=== PATIENT | male | born 1970 | race Hispanic/Latino ===

== ENCOUNTER 2017-09-12 11:02 | Emergency (ER) | payer SELFPAY ==
[~2017-09-12] VITALS: Ht 167.6 cm; Wt 86.2 kg
[~2017-09-12 11:02] MED LIST: AMBIEN10 MG PO; AMLODIPINE BESY10 MG PO; ATIVAN2 MG PO; Aspirin PO; GLUCOTROL5 MG PO; LEXAPRO10 MG PO; LIPITOR20 MG PO; LOPRESSOR25 MG PO; METOPROLOL SUCC50 MG PO; PLAVIX75 MG PO; SEROQUEL400 MG PO; Z.0.AMBIEN10 MG PO; Z.0.ATENOLOL100 MG PO; Z.0.ATIVAN2 MG PO; Z.0.GLIPIZIDE ER10 M PO; Z.0.JANUVIA100 MG PO
[2017-09-12] MEDS ORDERED: ONDANSETRON HCL INJ 2 MG/ML VIAL IV STA ×2 (11:11→12:35)
[2017-09-12] MEDS ORDERED: SODIUM CHLORIDE 0.9% 1000ML 1,000 ML IV STA (11:11)
--- NOTE | 2017-09-12 11:26 | Diagnostic Imaging Report ---
PROCEDURE: A single AP view of the chest. COMPARISON: 07/13/2015 INDICATIONS: SHORTNESS OF BREATH, WEAKNESS FINDINGS: Lines/tubes: None. Lungs: The lungs are well inflated and clear. There is no evidence of pneumonia or pulmonary edema. Pleura: There is no pleural effusion or pneumothorax. Heart and mediastinum: The heart and the mediastinum are unremarkable. Bones: No acute bony abnormality. IMPRESSION: 1. No acute cardiopulmonary disease. Dictated by: Jamarcus Sousa M.D. on 09/12/2017 at 11:27 Electronically approved by: Jamarcus Sousa M.D. on 09/12/2017 at 11:27
[2017-09-12] MEDS ORDERED: METOPROLOL TART50 MG PO (11:36)
[2017-09-12] MEDS ORDERED: PAXIL40 MG PO (11:36)
[2017-09-12 11:44] LABS: BASOPHILS # (AUTO) 0.1 (0.0-0.1); BASOPHILS % 0.5 % (0.0-1.0); EOSINOPHILS % 0.1 % (0.0-6.0); LYMPHOCYTES # (AUTO) 1.1 (1.0-3.2); MEAN CORPUSCULAR HGB CONC 34.1 g/dL (31-35); MEAN CORPUSCULAR VOLUME 82.1 fL (81-99); MONOCYTES # (AUTO) 0.4 (0.2-0.8); MONOCYTES % 4.5 % (4.4-11.3); NEUTROPHILS % 83.4 % (38.7-80.0); PLATELET COUNT 305 x10e3/uL (140-360); RED BLOOD COUNT 5.36 x10e6/uL (4.3-5.7)
[2017-09-12] MEDS ORDERED: LORAZEPAM INJ 2 MG/ML VIAL IV ONE ×2 (11:45→14:45)
[2017-09-12 11:54] LABS: INR 1.11; PROTHROMBIN TIME 13.5 seconds (11.9-14.5)
[2017-09-12 11:55] LABS: PARTIAL THROMBOPLASTIN TIME 20.4 seconds (23.8-35.5)
[2017-09-12 11:56] LABS: AMPHETAMINES SCREEN,URINE NEGATIVE (NEGATIVE); BENZODIAZEPINES SCREEN,URINE POSITIVE (NEGATIVE); PHENCYCLIDINE SCREEN,URINE NEGATIVE (NEGATIVE)
[2017-09-12 12:03] LABS: ALANINE AMINOTRANSFERASE 43 IU/L (0-55); ALKALINE PHOSPHATASE 167 IU/L (40-150); ANION GAP 25.5 mmol/L (8-16); BLOOD UREA NITROGEN 11 mg/dL (7-26); BUN/CREATININE RATIO 11 (6-25); CALCIUM 9.1 mg/dL (8.4-10.2); CARBON DIOXIDE 16 mmol/L (22-29); CHLORIDE 101 mmol/L (98-107); CREATINE KINASE 162 IU/L (30-200); EST GLOMERULAR FILTRATION RATE > 60 ML/MIN (60-); GLUCOSE 343 mg/dL (74-118); MAGNESIUM 1.8 MG/DL (1.3-2.1); POTASSIUM 4.5 mmol/L (3.5-5.1); SODIUM 138 mmol/L (136-145)
[2017-09-12 12:21] LABS: FREE THYROXINE INDEX 1.6771 (1.4-3.8); THYROID STIMULATING HORMONE 0.153 uIU/mL (0.350-4.940)
[2017-09-12] MEDS ORDERED: METOPROLOL TARTRATE INJ 1 MG/ML VIAL IV ONE ×2 (12:45→15:15)
[2017-09-12] MEDS ORDERED: INSULIN REGULAR, HUMAN 100 UNIT/1 ML 3ML VIAL IV ONE (12:45)
[2017-09-12] MEDS ORDERED: PROMETHAZINE 12.5MG/ NACL 0.9% 12.5 MG/50 ML BAG IV ONE (13:30)
[2017-09-12 13:51] LABS: ABG HCO3 17 mmol/L (23-28); ABG PCO2 32 mmHg (41-51); ABG PH 7.32 (7.31-7.41); ABG PO2 77 mmHg (80-105)
--- NOTE | 2017-09-12 13:52 | Diagnostic Imaging Report ---
PROCEDURE: CT scan of the chest WITH intravenous contrast, using standard protocol. TECHNIQUE: The chest was scanned utilizing a multidetector helical scanner from the lung apex through the level of the adrenal glands after the IV administration of 66 cc of Isovue 370. Coronal and sagittal multiplanar reformations were obtained. COMPARISON: None. INDICATIONS: SHORTNESS OF BREATH. "FEELS BAD" FROM ALCOHOL INTAKE FINDINGS: Lines/tubes: None. Pulmonary Arteries: Mildly limited examination due to suboptimal bolus timing. No evidence of pulmonary embolus to the level of the segmental pulmonary arteries. The main pulmonary artery is mildly enlarged, measuring 3.3 cm in caliber (normal is 2.9 cm). Lungs and Airways: The major airways are clear. No focal consolidation or suspicious pulmonary parenchymal masses. Pleura: The pleural spaces are clear. Heart and mediastinum: The thyroid gland is normal. No significant mediastinal, hilar or axillary lymphadenopathy is seen. Normal heart size. No paravertebral effusion. There are coronary artery calcifications. Soft tissues: Normal. Abdomen: Severe diffuse hepatic steatosis. Bones: The visualized bony thorax is within normal limits. IMPRESSION: No evidence of pulmonary embolus to at least the level of the segmental arteries. No specific findings to account for the patient's dyspnea. Dictated by: Jamarcus Sousa M.D. on 09/12/2017 at 13:53 Electronically approved by: Jamarcus Sousa M.D. on 09/12/2017 at 13:53
[2017-09-12] MEDS ORDERED: SODIUM CHLORIDE 0.9% 1000ML 1,000 ML IV ONE (14:00)
[2017-09-12 16:24] VITALS: BP 122/78
== END 2017-09-12 16:24 | disposition home or self-care (01) ==
LOC: ER 11:02
DX: R00.2 Palpitations (principal); R00.0 Tachycardia, unspecified; F10.129 Alcohol abuse with intoxication, unspecified; E11.9 Type 2 diabetes mellitus without complications; I10 Essential (primary) hypertension; F41.9 Anxiety disorder, unspecified; I25.2 Old myocardial infarction
CPT/HCPCS: 36415; 36600; 71045; 71260; 80053; 80307; 82550; 82553; 82805; 83735; 83880; 84436; 84443; 84479; 84484; 85025; 85379; 85610; 85730; 93005; 99284; J2060; J2405; J2550; J7030

== ENCOUNTER 2019-12-04 15:57 | Inpatient (IN) | payer OTHER, SELFPAY ==
[2019-12-04] VITALS (9 sets, daily range): BP systolic 128–139; BP diastolic 91–102
[~2019-12-04] VITALS: Ht 167.6 cm; Wt 86.2 kg
[~2019-12-04 15:57] MED LIST changes: +METOPROLOL TART50 MG PO; +PAXIL40 MG PO
--- NOTE | 2019-12-04 16:51 | Emergency Department Note ---
History of Present Illnes History of Present Illness Chief Complaint: Chest Pain History of Present Illness This is a 49 year old male with substernal CP 2 hours prior to arrival. (+) SOB (+) N . Historian: Patient Arrival Mode: Car Onset (how long ago): hour(s) Location: substernal Radiation: Reports non-radiation Onset quality: sudden Chronicity: new Context: Denies recent illness, Denies recent surgery, Denies recent immobilization, Denies recent travel, Denies trauma/injury, Denies new medications, Denies hx of DVT/PE, Denies non-compliance w/ medications, Denies other Relieving factors: none Exacerbating factors: none Associated symptoms: Reports chest pain, Reports shortness of breath Treatments prior to arrival: none Past Medical/Family History Physician Review I have reviewed the patient's past medical and family history. Any updates have been documented here. Past Medical History Recent Fever: No Clinical Suspicion of Infectio: No New/Unexplained Change in Ment: No Past Medical History: Hypertension, Diabetes, NM Other Medical History: INSOMNIA, ANXIETY HIGH CHOLESTEROL Past Surgical History: None, PCI Other Surgery: 2 stents Social History Smoking Cessation: Never Smoker Alcohol Use: None Any Illegal Drug Use: No Other Last Tetanus: UNK Review of Systems Review of Systems Constitutional: Reports no symptoms EENTM: Reports no symptoms Cardiovascular: Reports chest pain Respiratory: Reports dyspnea Gastrointestinal: Reports nausea Genitourinary: Reports no symptoms Musculoskeletal: Reports no symptoms Integumentary: Reports no symptoms Neurological: Reports no symptoms Psychological: Reports no symptoms Endocrine: Reports no symptoms Hematological/Lymphatic: Reports no symptoms Physical Exam Related Data Allergies: Coded Allergies: No Known Allergies (Unverified , 09/12/17) Triage Vital Signs Vital Signs Date Time Temp Pulse Resp B/P (MAP) Pulse Ox O2 Delivery O2 Flow Rate FiO2 12/04/19 16:47 98.2 128 20 162/107 99 12/04/19 22:12 Nasal Cannula 12/04/19 22:29 2.0 Vital signs reviewed: Yes Physical Exam CONSTITUTIONAL Constitutional: Present well-developed, Present well-nourished HENT HENT: Present normocephalic, Present atraumatic, Present oropharynx clear/moist, Present nose normal HENT L/R: Present left ext ear normal, Present right ext ear normal EYES Eyes: Reports PERRL, Reports conjunctivae normal NECK Neck: Present ROM normal PULMONARY Pulmonary: Present effort normal, Present breath sounds normal CARDIOVASCULAR Cardiovascular: Present regular rhythm, Present heart sounds normal, Present capillary refill normal, Present normal rate, Present tachycardia GASTROINTESTINAL Abdominal: Present soft, Present nontender, Present bowel sounds normal GENITOURINARY Genitourinary: Present exam deferred SKIN Skin: Present warm, Present dry MUSCULOSKELETAL Musculoskeletal: Present ROM normal NEUROLOGICAL Neurological: Present alert, Present oriented x 3, Present no gross motor or sensory deficits PSYCHOLOGICAL Psychological: Present mood/affect normal, Present judgement normal Results Laboratory Lab results reviewed: Yes Laboratory comments Na : 125 MARKEDLY elevated troponins Imaging Imaging results reviewed: Yes Impressions [place] [address] Patient Name: ARIANA EASLEY MR #: [id number] : 1970 Age/Sex: 49/M Req #: [id number] Adm Physician: Ordered by: MARJ PANIAGUA DO Report #: [id number] Location: ER Room/Bed: Procedure: [id number] DX/CHEST SINGLE (PORTABLE) Exam Date: 12/04/19 Exam Time: 1944 REPORT STATUS: Signed EXAMINATION: CHEST SINGLE (PORTABLE) 12/04/2019 7:45 PM COMPARISON: None available. INDICATION: Chest pain. Shortness of breath. DISCUSSION: LINES: None. LUNGS: The lungs are mildly hypoinflated. No pneumonia or pulmonary edema. PLEURA: No pleural effusion or pneumothorax. HEART AND MEDIASTINUM: The cardiomediastinal silhouette is mildly enlarged. BONES AND SOFT TISSUES: No acute osseous lesion. IMPRESSION: No acute thoracic abnormality. Signed by: Dr. Yahaira Morrison M.D. on 12/04/2019 8:19 PM Dictated By: CARMEN MORRISON MD, MD 18 Transcribed By: NEY on 12/04/192018 COPY TO: MARJ PANIAGUA DO~ Procedures 12 Lead ECG Interpretation ECG Interpretation : ECG: ECG 1 Carton Maker: Interpreted by ED physician Date: Dec 04, 2019 Time: 16:50 Prior ECG tracings: reviewed Rate: tachycardia BPM: 128 ST segments normal: No ST segment elevation: V1-V6 ST segment flattening: II, III T waves normal: Yes Critical Care Time Total Critical Care Time (min): 31 Critcal care necessary due to: cardiac failure Critcal care time spent by me: develop tx plan w patient/surrogate, discussion w consultants, evaluation patient response to tx, examination of patient, order/review laboratory studies, order/review radiographic studies, re- evaluation of patient condition Assessment & Plan Medical Decision Making MDM 49 yom presents with CP . ACS, PE, costocondritis, Chest wall pain, and pneumothorax considered. labs, imaging and EKG reviewed . CODE STEMI activated. case d/w with Dr Sarah Child Assessment & Plan Final Impression: (1) STEMI (ST elevation myocardial infarction) (2) Hyponatremia Depart Disposition: ADMITTED Home Meds Active Scripts Metoprolol Tartrate (LOPRESSOR) 25 Mg Tab, 50 MG PO BID, #180 TAB Prov:BRYAN MARQUEZ MD 07/14/15 Glipizide (GLUCOTROL) 5 Mg Tablet, 5 MG PO BIDAC, #120 1 Refill Prov:BRYAN MARQUEZ MD 07/14/15 Clopidogrel Bisulfate* (PLAVIX) 75 Mg Tablet, 75 MG PO DAILY, #90 2 Refills Prov:BRYAN MARQUEZ MD 07/14/15 [Aspirin] 325 MG TAB No Conflict Check, 325 MG PO DAILY, #90 2 Refills Prov:BRYAN MARQUEZ MD 07/14/15 Atorvastatin Calcium (LIPITOR) 20 Mg Tablet, 20 MG PO HS, #90 TAB 1 Refill Prov:BRYAN MARQUEZ MD 07/14/15 Reported Medications Paroxetine Hcl (PAXIL) 40 Mg Tablet, 40 MG PO HS 09/12/17 Metoprolol Tartrate (METOPROLOL TARTRATE) 50 Mg Tablet, 100 MG PO BID, TAB 09/12/17 Quetiapine Fumarate (SEROQUEL) 400 Mg Tablet, 400 MG PO DAILY 07/13/15 Lorazepam (ATIVAN) 2 Mg Tablet, 2 MG PO TID 07/13/15 Escitalopram Oxalate (LEXAPRO) 10 Mg Tablet, 20 MG PO DAILY, #30 TAB 07/13/15 MARJ PANIAGUA DO Dec 04, 2019 16:51
[2019-12-04] MEDS ORDERED: ASPIRIN 81 MG CHEW TAB PO ONE ×2 (17:00→18:30)
[2019-12-04 17:07] LABS: BASOPHILS # (AUTO) 0.1 (0.0-0.1); BASOPHILS % 0.6 % (0.0-1.0); EOSINOPHILS # (AUTO) 0.1 (0.0-0.4); EOSINOPHILS % 0.9 % (0.0-6.0); HEMOGLOBIN 15.2 g/dL (14.0-18.0); LYMPHOCYTES # (AUTO) 1.7 (1.0-3.2); LYMPHOCYTES % 15.8 % (18.0-39.1); MEAN CORPUSCULAR HGB CONC 34.5 g/dL (31-35); MEAN CORPUSCULAR VOLUME 78.3 fL (81-99); MONOCYTES # (AUTO) 0.8 (0.2-0.8); PLATELET COUNT 396 x10e3/uL (140-360); RED BLOOD COUNT 5.62 x10e6/uL (4.3-5.7); RED CELL DISTRIBUTION WIDTH 12.4 % (11.7-14.4)
[2019-12-04] MEDS ORDERED: VERAPAMIL HCL 2.5 MG/ML 2 ML VIAL ONE (17:17)
[2019-12-04] MEDS ORDERED: BIVALRIUDIN 250 MG/VIAL VIAL IV ONE (17:17)
[2019-12-04] MEDS ORDERED: HEPARIN SOD (PORCINE) 1000 UNIT/ML 30ML ONE (17:17)
[2019-12-04] MEDS ORDERED: MIDAZOLAM HCL 2 MG/2 ML VIAL ONE ×2 (17:17→17:49)
[2019-12-04] MEDS ORDERED: SODIUM CHLORIDE 0.9% 1000ML 1,000 ML ONE (17:18)
[2019-12-04] MEDS ORDERED: FENTANYL CITRATE/PF 100MCG/2 ML INJ ONE (17:18)
[2019-12-04] MEDS ORDERED: HEPARIN SOD/SOD CHLORIDE 2,000 ML ONE (17:18)
[2019-12-04] MEDS ORDERED: LIDOCAINE HCL 2% LOCAL 20 ML VIAL ONE (17:18)
[2019-12-04] MEDS ORDERED: SODIUM CHLORIDE 0.9% 50ML 50 ML ONE (17:18)
[2019-12-04] MEDS ORDERED: IOPAMIDOL 370 MG/ML 200 ML INFUS..BTL INJ ONE (17:18)
[2019-12-04 17:26] LABS: ALANINE AMINOTRANSFERASE 36 IU/L (0-55); ALBUMIN 3.7 g/dL (3.5-5.0); ALBUMIN/GLOBULIN RATIO 0.9 (0.8-2.0); ALKALINE PHOSPHATASE 113 IU/L (40-150); ANION GAP 16.2 mmol/L (8-16); BLOOD UREA NITROGEN 8 mg/dL (7-26); BUN/CREATININE RATIO 9 (6-25); CALCIUM 9.7 mg/dL (8.4-10.2); CARBON DIOXIDE 19 mmol/L (22-29); CHLORIDE 94 mmol/L (98-107); CREATINE KINASE 2925 IU/L (30-200); CREATININE, SERUM 0.87 mg/dL (0.72-1.25); EST GLOMERULAR FILTRATION RATE > 60 ML/MIN (60-); GLUCOSE 257 mg/dL (74-118); POTASSIUM 4.2 mmol/L (3.5-5.1); SODIUM 125 mmol/L (136-145)
[2019-12-04] MEDS ORDERED: PRASUGREL 10 MG TAB ONE (17:59)
[2019-12-04] MEDS ORDERED: ASPIRIN 325 MG TAB ONE (17:59)
[2019-12-04] MEDS ORDERED: EPTIFIBATIDE 20 ML ONE (18:05)
[2019-12-04] MEDS ORDERED: ACETAMINOPHEN 325 MG TAB PO PRN (18:30)
[2019-12-04] MEDS ORDERED: MORPHINE SULFATE INJ 4 MG/ML INJ 1ML IV PRN (18:30)
[2019-12-04] MEDS ORDERED: ONDANSETRON HCL INJ 2MG/ML 2ML 2 MG/ML VIAL IV PRN (18:30)
[2019-12-04] MEDS ORDERED: HYDROCODONE/APAP 5MG-325MG TAB PO PRN (18:30)
[2019-12-04] MEDS ORDERED: FUROSEMIDE INJ 10 MG/ML 4 ML VIAL ONE (18:32)
--- NOTE | 2019-12-04 19:51 | Consultation ---
DATE OF CONSULTATION: 12/04/2019 Cardiology Consultation REASON FOR CONSULTATION: ST-elevation myocardial infarction. HISTORY OF PRESENT ILLNESS: Mr. Jennings is a gentleman with known coronary artery disease, diabetes, hypertension, obesity, who comes in complaining of 2 hours of chest pain. EKG shows anterior ST elevation with deep Q-waves. He has not been compliant with his medications. No followup. He has prior stent placement. PAST MEDICAL HISTORY: Listed above. SOCIAL HISTORY: The patient denies smoking. MEDICATIONS: Reviewed. No known drug allergies. REVIEW OF SYSTEMS: Negative except as dictated in the history of present illness. PHYSICAL EXAMINATION: VITAL SIGNS: Afebrile, heart rate 110, blood pressure 98/70. CARDIOVASCULAR: Regular rhythm. S3 gallop. Systolic murmur. LUNGS: Clear to auscultation bilaterally. ABDOMEN: Soft, but distended. Pedal pulses are trace positive. LABORATORY DATA: EKG and labs reviewed. ASSESSMENT: Anterior ST-elevation myocardial infarction. RECOMMENDATIONS: Emergency coronary angiography and intervention will be performed, this was discussed with the patient. Anticoagulation with Angiomax and aspirin. Further recommendations following intervention. MD ZULMA Casarez/EMILY /[id number]
--- NOTE | 2019-12-04 20:22 | Diagnostic Imaging Report ---
EXAMINATION: CHEST SINGLE (PORTABLE) 12/04/2019 7:45 PM COMPARISON: None available. INDICATION: Chest pain. Shortness of breath. DISCUSSION: LINES: None. LUNGS: The lungs are mildly hypoinflated. No pneumonia or pulmonary edema. PLEURA: No pleural effusion or pneumothorax. HEART AND MEDIASTINUM: The cardiomediastinal silhouette is mildly enlarged. BONES AND SOFT TISSUES: No acute osseous lesion. IMPRESSION: No acute thoracic abnormality. Signed by: Dr. Yahaira España M.D. on 12/04/2019 8:19 PM
[2019-12-04] MEDS ORDERED: LORAZEPAM 1 MG TAB PO SCH (21:00)
[2019-12-04] MEDS ORDERED: ZOLPIDEM TARTRATE 5 MG TAB PO PRN (21:00)
[2019-12-04] MEDS ORDERED: PAROXETINE HCL 20 MG TAB PO SCH (21:00)
[2019-12-04] MEDS ORDERED: ATORVASTATIN 20 MG TAB PO SCH (21:00)
--- NOTE | 2019-12-04 21:30 | NUR ---
Called and spoke to Dr Kellogg Re:pt's request for Gabapentin @ [facility] (His home med). She would like to hold off on this med for now. I notified pt of Md's response.
--- NOTE | 2019-12-04 21:55 | NUR ---
PM meds (Ativan, Lipitor ans Paxil) administered
--- NOTE | 2019-12-04 22:46 | Operative Report ---
DATE OF PROCEDURE: 12/04/2019 SURGEON: Román Child MD INDICATION: Anterior ST-elevation myocardial infarction. COMPLICATIONS: None. RECOMMENDATIONS: Dual antiplatelet therapy for life. ASSESSMENT: For ischemic cardiomyopathy. DESCRIPTION OF PROCEDURE: Access was obtained in the right femoral artery. A 6-Nepali sheath was placed. A 50% left main, left anterior descending stent in the proximal portion and 99% in-stent restenosis. Mid left anterior descending artery was occluded. Stents in the circumflex were patent. Right coronary artery mild disease. LV end-diastolic pressure of 43. A short Runthrough wire was advanced across into the left anterior descending artery. The patient received intravenous Angiomax, oral aspirin and prasugrel as well as intracoronary Integrilin for anticoagulation. Balloon dilatation 2 mm balloon. Total balloon time of 53 minutes. Multiple attempts including copious amounts of intracoronary nitroglycerin, thrombectomy using an export catheter performed, however, failed to achieve better than NYDIA 1 flow in the LAD. Two overlapping stents 2.5 x 38 and 2.75 x 24 mm Synergy stents were deployed from the proximal to the distal left anterior descending artery, however, poor flow remained. Diagonal remained widely patent. No complications. Right groin repaired using Perclose. The patient transferred to the ICU in stable condition. Román Child MD [facility]/MODL /[id number]
--- NOTE | 2019-12-04 23:15 | NUR ---
Pt called me into his room and stated that he wants to go home because he did not receive his Gabapentin and is unable to sleep. I notified him that he is still on Bed rest S/P cardiac cath, and informed him of the demerits of not completing his bedrest. He started to take off his leads and said he didn't care and wanted to go home immediately. I told him not to pull out his IV while I went to notify the charge nurse, hospitality house supervisor and call the physician.
--- NOTE | 2019-12-04 23:25 | NUR ---
The physician gave me an order for Gabapentin, and I went into the room to administer the medication, but the patient was already up and dressed. he said he no longer wanted the medication, and wanted to go home immediately. He said" I'm leaving AMA. Get me the paper. I'll sign anything" security supervisor came into the room and explained the benefits of staying as well as risks of leaving AMA. Patient stated he will not stay the night. He got on the phone and called family to come pick him up.
[2019-12-04] MEDS ORDERED: GABAPENTIN 300 MG CAP PO ONE (23:45)
[2019-12-04] MEDS ORDERED: GABAPENTIN 400 MG CAP ONE (23:51)
[2019-12-04] MEDS ORDERED: GABAPENTIN 100 MG CAP ONE (23:52)
[2019-12-05] MEDS ORDERED: GLIPIZIDE 5 MG TAB PO SCH (07:30)
[2019-12-05] MEDS ORDERED: METOPROLOL TARTRATE 25 MG TAB PO SCH (09:00)
[2019-12-05] MEDS ORDERED: ESCITALOPRAM OXALATE 10 MG TAB PO SCH (09:00)
[2019-12-05] MEDS ORDERED: QUETIAPINE FUMARATE 100 MG TAB PO SCH (09:00)
[2019-12-05] MEDS ORDERED: CLOPIDOGREL BISULFATE 75 MG TAB PO SCH (09:00)
[2019-12-05] MEDS ORDERED: METOPROLOL TARTRATE 50 MG TAB PO SCH (09:00)
[2019-12-05] MEDS ORDERED: ASPIRIN 325 MG TAB PO SCH (09:00)
== END 2019-12-05 00:45 | disposition left against medical advice (07) | DRG 247 ==
LOC: ER 17:02 → IMCU 20:27
PROVIDERS: ADMIT Internal Medicine Interventional Cardiology; ATTEND Internal Medicine Interventional Cardiology
PROC: 027135Z Dilation of Coronary Artery, Two Arteries with Two Drug-eluting Intraluminal Devices, Percutaneous Approach (ICD-10-PCS; principal; 2019-12-04)
PROC: 02C03ZZ Extirpation of Matter from Coronary Artery, One Artery, Percutaneous Approach (ICD-10-PCS; 2019-12-04)
PROC: 4A023N7 Measurement of Cardiac Sampling and Pressure, Left Heart, Percutaneous Approach (ICD-10-PCS; 2019-12-04)
PROC: B2111ZZ Fluoroscopy of Multiple Coronary Arteries using Low Osmolar Contrast (ICD-10-PCS; 2019-12-04)
DX: I21.09 ST elevation (STEMI) myocardial infarction involving other coronary artery of anterior wall (principal)
CPT/HCPCS: 36415; 71045; 80053; 82550; 82553; 83880; 84484; 85025; 85379; 92921; 92928; 92973; 93005; 93458; 99152; 99153; 99284; C1725; C1757; C1760; C1769; C1874; C1894; J0583; J1327; J1644; J1940; J2001; J2250; J3010; J7030; Q9967